=== PATIENT | male | born 1950 | race Caucasian/White ===

== ENCOUNTER 2022-07-17 22:03 | Emergency (ER) | payer OTHER ==
[2022-07-17] MEDS ORDERED: Sodium Chloride 0.9% 10 ML Syringe FLUSH PRN (22:06)
[2022-07-17 22:39] LABS: BASOPHILS ABSOLUTE AUTO 0.01 K/uL (0.00-0.20); BASOPHILS PERCENT AUTO 0.1 % (0.0-2.0); EOSINOPHILS ABSOLUTE AUTO 0.12 K/uL (0.00-0.50); EOSINOPHILS PERCENT AUTO 1.5 % (0.0-5.0); HEMATOCRIT 33.3 % (39.0-49.0); HEMOGLOBIN 11.4 g/dL (13.1-16.8); LYMPHOCYTES PERCENT AUTO 15.1 % (10.0-50.0); MEAN CORPUSCULAR HEMOGLOBIN 31.3 pg (28.2-33.3); MEAN CORPUSCULAR HGB CONC 34.2 g/dL (31.7-36.0); MEAN CORPUSCULAR VOLUME 91.5 fL (84.0-98.0); MONOCYTES PERCENT AUTO 7.6 % (2.0-14.0); NEUTROPHILS PERCENT AUTO 75.7 % (45.0-80.0); PLATELET COUNT,PLT 242 K/uL (150-350); RED BLOOD CELL COUNT 3.64 M/uL (4.33-5.41); RED CELL DISTRIBUTION WIDTH 12.3 % (11.2-14.1); WHITE BLOOD CELL COUNT,WBC 7.9 K/uL (4.0-10.2)
[2022-07-17 23:00] LABS: ALANINE AMINOTRANSFERASE,ALT 29 U/L (12-78); ALBUMIN 3.8 g/dL (3.4-5.0); ALKALINE PHOSPHATASE 84 IU/L (46-116); ASPARTATE AMNIOTRANSFERASE,AST 19 U/L (15-37); BILIRUBIN TOTAL 0.2 mg/dL (0.2-1.0); BLOOD UREA NITROGEN,BUN 5 mg/dL (7-18); CALCIUM 8.8 mg/dL (8.5-10.1); CARBON DIOXIDE,CO2 23.9 mmol/L (21.0-32.0); CHLORIDE,CL 96 mmol/L (98-107); CREATINE KINASE,CK 96 U/L (26-308); CREATININE 1.03 mg/dL (0.51-1.17); GLUCOSE RANDOM 109 mg/dL (70-99); POTASSIUM,K 4.2 mmol/L (3.5-5.1); PROTEIN TOTAL,TP 6.5 g/dL (6.4-8.2); SODIUM,NA 131 mmol/L (136-145)
[2022-07-17 23:02] LABS: ANION GAP 15.3 meq/L (7-15); ESTIMATED GFR 77 mL/min (>=60)
== END 2022-07-17 23:50 ==
LOC: LL.ED 22:03 → SUPCPDRO 22:03 → LL.ED 23:50
DX: R07.89 Other chest pain (principal); R51.9 Headache, unspecified; I44.0 Atrioventricular block, first degree; Z88.8 Allergy status to other drugs, medicaments and biological substances; Z91.018 Allergy to other foods; Z88.5 Allergy status to narcotic agent; Z88.0 Allergy status to penicillin; Z88.2 Allergy status to sulfonamides; Z79.82 Long term (current) use of aspirin; Z79.899 Other long term (current) drug therapy
CPT/HCPCS: 36415; 70450; 71045; 80053; 82550; 82947; 84484; 85025; 85379; 93005; 93010; 99284; 99285

== ENCOUNTER 2023-11-11 04:41 | Emergency (ER) | payer OTHER ==
[~2023-11-11 04:41] MED LIST: Sodium Chloride 0.9% 10 ML Syringe FLUSH PRN
[2023-11-11 04:54] LABS: BASOPHILS ABSOLUTE AUTO 0.02 K/uL (0.00-0.20); BASOPHILS PERCENT AUTO 0.1 % (0.0-2.0); HEMATOCRIT 36.8 % (39.0-49.0); HEMOGLOBIN 12.4 g/dL (13.1-16.8); LYMPHOCYTES ABSOLUTE AUTO 0.32 K/uL (0.50-3.50); LYMPHOCYTES PERCENT AUTO 0.9 % (10.0-50.0); MEAN CORPUSCULAR HEMOGLOBIN 31.3 pg (28.2-33.3); MEAN CORPUSCULAR HGB CONC 33.7 g/dL (31.7-36.0); MEAN CORPUSCULAR VOLUME 92.9 fL (84.0-98.0); MONOCYTES ABSOLUTE AUTO 0.85 K/uL (0.00-1.00); MONOCYTES PERCENT AUTO 2.4 % (2.0-14.0); NEUTROPHILS ABSOLUTE AUTO 34.63 K/uL (1.40-7.00); NEUTROPHILS PERCENT AUTO 96.6 % (45.0-80.0); PLATELET COUNT,PLT 324 K/uL (150-350); RED BLOOD CELL COUNT 3.96 M/uL (4.33-5.41); RED CELL DISTRIBUTION WIDTH 12.6 % (11.2-14.1); WHITE BLOOD CELL COUNT,WBC 35.8 K/uL (4.0-10.2)
[2023-11-11] MEDS: Albuterol/Ipratropium 3.0-0.5 MG/3 ML Neb Soln NEB ONE ×2 (05:03→05:26)
[2023-11-11] MEDS: Lactated Ringers 1,000 ML IV ONE (05:03)
[2023-11-11 05:15] LABS: APPEARANCE,URINE CLOUDY; BILIRUBIN,URINE NEGATIVE (NEGATIVE); COLOR,URINE YELLOW; GLUCOSE,URINE NEGATIVE (NEGATIVE); KETONES,URINE NEGATIVE (NEGATIVE); LEUKOCYTE ESTERASE,URINE MODERATE (NEGATIVE); NITRITE,URINE NEGATIVE (NEGATIVE); OCCULT BLOOD,URINE TRACE-INTACT (NEGATIVE); PH,URINE 5.5 (5.0-9.0); PROTEIN,URINE 30 mg/dL (NEGATIVE); UROBILINOGEN,URINE 0.2 E.U./dL (0.2-1.0)
[2023-11-11 05:17] LABS: ALBUMIN 3.3 g/dL (3.4-5.0); ANION GAP 14.4 meq/L (7-15); BILIRUBIN TOTAL 0.9 mg/dL (0.2-1.0); CALCIUM 9.8 mg/dL (8.5-10.1); CARBON DIOXIDE,CO2 23.6 mmol/L (21.0-32.0); CREATININE 1.69 mg/dL (0.51-1.17); MAGNESIUM 1.9 mg/dL (1.8-2.4); POTASSIUM,K 4.3 mmol/L (3.5-5.1); PROTEIN TOTAL,TP 7.5 g/dL (6.4-8.2)
[2023-11-11 05:19] LABS: INR 1.1 (0.9-1.1); PROTHROMBIN TIME 10.8 SEC (9.0-11.1)
[2023-11-11 05:23] LABS: BACTERIA,URINE MANY /HPF (NONE TO FEW); EPITHELIAL CELLS,URINE NOT SEEN /LPF; MUCUS,URINE NOT SEEN /LPF (NEGATIVE); RBC,URINE 0-5 /HPF; WBC,URINE >100 /HPF
[2023-11-11] MEDS: Norepinephrine Bit/D5W Premix 250 ML IV SCH (05:29)
[2023-11-11 05:31] LABS: EST CRCL DRUG DOSING (CG) 41.46 mL/min
[2023-11-11] MEDS: cefTRIAXone 1 GM Vial IVPUSH STA (05:31)
[2023-11-11 05:44] LABS: CORONAVIRUS COVID-19 NAA NEGATIVE (NEGATIVE); INFLUENZA A NAA NEGATIVE (NEGATIVE); INFLUENZA B NAA NEGATIVE (NEGATIVE); RESPIRATORY SYNCYTIAL VIR NAA NEGATIVE (NEGATIVE)
[2023-11-11] MEDS: Sodium Chloride 0.9% 1,000 ML IV ONE ×3 (05:46→12:02)
[2023-11-11] MEDS: VANCOmycin 2 GM/400 ML 2 GM in Premix Bag 1 BAG IV ONE (06:06)
[2023-11-11] MEDS: Aspirin 81 MG Tab.Chew PO ONE (06:07)
[2023-11-11] MEDS: Iopamidol 755 Mg/ML 100 ML Bottle ONE (06:27)
[2023-11-11] MEDS: Albuterol/Ipratropium 3.0-0.5 MG/3 ML Neb Soln ONE (07:12)
== END 2023-11-11 12:25 ==
LOC: LL.ED 04:41
DX: A41.9 Sepsis, unspecified organism (principal); N39.0 Urinary tract infection, site not specified; I25.10 Atherosclerotic heart disease of native coronary artery without angina pectoris; E78.00 Pure hypercholesterolemia, unspecified; I10 Essential (primary) hypertension; J44.9 Chronic obstructive pulmonary disease, unspecified; K21.9 Gastro-esophageal reflux disease without esophagitis; M19.90 Unspecified osteoarthritis, unspecified site; Z79.82 Long term (current) use of aspirin; Z79.899 Other long term (current) drug therapy; Z88.0 Allergy status to penicillin; Z88.2 Allergy status to sulfonamides; Z88.8 Allergy status to other drugs, medicaments and biological substances; Z91.018 Allergy to other foods; Z91.048 Other nonmedicinal substance allergy status
CPT/HCPCS: 0241U; 36415; 71045; 71275; 80053; 80202; 81001; 83605; 83735; 84484; 85025; 85379; 85610; 87040; 87077; 87086; 87088; 87186; 93005; 94640; 96361; 96365; 96366; 96367; 96375; 99285; J0696; J3372; J7030; J7120; Q9967; J3490; J7620-GY